=== PATIENT | male | born 1990 | race Caucasian/White ===

== ENCOUNTER 2018-05-25 18:33 | Emergency (ER) | payer BC ==
[~2018-05-25] VITALS: Ht 162.6 cm; Wt 132.5 kg
[2018-05-25 19:22] LABS: ALBUMIN 3.6 g/dL (3.4-5.0); ANION GAP 7 mmol/L (5-15); CALCIUM 9.1 mg/dL (8.5-10.1); CHLORIDE 108 mmol/L (98-107); CREATININE 0.93 mg/dL (0.7-1.3)
[2018-05-25 19:25] LABS: TROPONIN I < 0.015 ng/mL (0.000-0.045)
[2018-05-25 19:42] LABS: BASOPHILS # (AUTO) 0.04 x10^3/uL (0-0.1); BASOPHILS % (AUTO) 1 % (0-1); EOSINOPHILS # (AUTO) 0.22 x10^3/uL (0-0.4); EOSINOPHILS % (AUTO) 3 % (1-7); LYMPHOCYTES # (AUTO) 2.26 x10^3/uL (1-3.4); LYMPHOCYTES % (AUTO) 26 % (22-44); MD NO; MEAN CORPUSCULAR HEMOGLOBIN 27.8 pg (27.5-34.5); MEAN CORPUSCULAR VOLUME 84.4 fL (81-97); MEAN PLATELET VOLUME 10.1 fL (7.4-10.4); MONOCYTES # (AUTO) 0.52 x10^3/uL (0.2-0.8); MONOCYTES % (AUTO) 6 % (2-9); NEUTROPHILS # (AUTO) 5.64 x10^3/uL (1.8-6.8); NEUTROPHILS % (AUTO) 65 % (42-75); PLATELET COUNT 235 x10^3/uL (130-400); RED BLOOD COUNT 4.63 x10^6/uL (4.38-5.82); RED CELL DISTRIBUTION WIDTH 14.2 % (9.4-14.8)
[2018-05-25 20:21] VITALS: BP 149/68
--- NOTE | 2018-05-25 20:21 | NUR ---
THIS FLOAT RN AT BEDSIDE TO DC PT FOR PRIMARY RN, EAMON. PT AND SPOUSE VERBALIZED UNDERSTANDING TO DC INSTRUCTIONS. PT AMBULATORY TO CHECKOUT C STEADY GAIT. VSS.
== END 2018-05-25 20:24 | disposition home or self-care (01) ==
LOC: ED 20:18
DX: R07.89 Other chest pain (principal); M94.0 Chondrocostal junction syndrome [Tietze]
CPT/HCPCS: 36415; 71045; 80048; 82040; 84484; 85025; 93005; 99284